=== PATIENT | female | born 1940 | race Caucasian/White ===

== ENCOUNTER → 2016-12-02 | Outpatient (CLI) | payer MEDICARE ==
[~2016-12-02] MED LIST: ADVAIR DISKUS 11 DSK IH; ALBUTEROL2.5 MG/NEB IN; AMOXIL875 MG PO; ASPIRIN 81MG TA81 MG PO; AZELASTINE137 MCG/SP; CARVEDILOL3.125 MG PO; COREG3.125 MG PO; DIGOXIN0.125 MG PO; ENALAPRIL2.5 MG PO; FEXOFENADINE180 MG PO; FUROSEMIDE40 MG PO; GLIMEPIRIDE 2MG2 MG PO; LANOXIN 0.120.125 MG PO; LANTUS100 U/ML SC; MEDROL 4MG. DOSE4 MG PO; METFORMIN500 MG PO; MOBIC7.5 MG PO; MUCINEX600 MG PO; MULTI VITAMINS1 TA1 PO; NASONEX0.05 MG/AC NS; OMNICEF 300 MG300 MG PO; OSTEO BI-FLEX1 TAB PO; POTASSIUM CHLO20 ME2 PO; RISPERDAL1 MG PO; SINGULAIR10 MG PO; THEO-DUR 300MG300 MG PO
--- NOTE | 2016-12-03 06:44 | RADIOLOGY REPORT PS360 ---
CT CHEST W/O CONTRAST HISTORY: Solitary pulmonary nodule, abnormal chest x-ray, breast cancer PULMONARY NODULE,NEOPLASM LEFT BREAST ORDERING PHYSICIAN: Jf Latham MD PATIENT AGE: 76 years TECHNIQUE: Helical acquisition obtainedwithout contrast. Axial, sagittal, and coronal reformatted images are generated and reviewed. COMPARISON: Chest radiograph of 11/19/2016 FINDINGS: Atheromatous calcification involves the aorta. There is mild prominence of the main pulmonary artery with a pulmonary artery/aorta ratio greater than 1. There is also prominence of both right and left main pulmonary arteries. Pulmonary arterial hypertension should be considered. There are coronary artery calcifications. No mediastinal or hilar mass. There is cardiomegaly and there is mild thickening of the pericardium posteriorly. There are centrilobular emphysematous changes. There is an 11 x 11 mm spiculated nodule in the left upper lobe anteriorly with extension to the pleural surface corresponding to the radiographic abnormality. This is suspicious for neoplasm. Atelectatic or fibrotic changes are present in the right lung base. There is mild diffuse bronchial thickening. No pleural effusion. No hilar or mediastinal adenopathy. No acute bony anomalies. Upper abdominal images show mild fusiform dilatation of the infrarenal abdominal aorta measuring up to 3.8 cm. Left adrenal gland is slightly prominent but maintains an adreniform shape. Follow-up recommended. IMPRESSION: 1. 11 mm spiculated nodule left upper lobe anterolaterally suspicious for neoplasm. There is some tenting of the overlying pleura. Pulmonary fibrosis is considered in the differential diagnosis. PET/CT may be of further value. Pulmonary consult may also be in order. 2. Cardiomegaly with coronary artery disease. 3. Emphysema. 4. Pulmonary arterial hypertension 5. Mildly enlarged left adrenal gland
== END ==
LOC: RAD 14:42
DX: R91.1 Solitary pulmonary nodule (principal); C50.112 Malignant neoplasm of central portion of left female breast

== ENCOUNTER → 2016-12-19 | Outpatient (CLI) | payer MEDICARE ==
[2016-12-19 14:39] LABS: LYMPH # 1.9 K/mm3 (0.7-4.5); LYMPH % 17.9 % (10-50.0)
[2016-12-19 15:14] LABS: HEMOGLOBIN 10.2 g/dL (12.2-16.2)
== END ==
LOC: LAB 13:36
PROVIDERS: Nurse Practitioner Family
DX: K62.5 Hemorrhage of anus and rectum (principal)

== ENCOUNTER → 2016-12-25 | Outpatient (CLI) | payer MEDICARE ==
--- NOTE | 2016-12-25 11:08 | RADIOLOGY REPORT PS360 ---
US AORTA (RETROPERITONEAL) HISTORY: Abdominal aortic aneurysm evaluation AAA ORDERING PHYSICIAN: MONROE May PATIENT AGE: 76 years COMPARISON: None FINDINGS: The upper abdominal aorta measures 3.2 x 3 cm at the level the xiphoid. The mid aspect of the abdominal aorta is 3.9 x 4.1 cm AP and transverse with a mild amount of mural thrombus. This is at the level of the kidneys. The distal abdominal aorta is 3.2 cm. There is dilatation of the proximal left common iliac at 3.4 cm. IMPRESSION: 1. Abdominal aortic aneurysm measuring up to 4 cm. Atherosclerotic changes are present. 2. Dilated left common iliac artery at 3.4 cm.
== END ==
LOC: RAD 09:24
DX: I71.4 Abdominal aortic aneurysm, without rupture (principal)